=== PATIENT | female | born 1980 | race Caucasian/White ===

== ENCOUNTER 2017-05-23 17:11 | Emergency (ER) | payer OTHER ==
[2017-05-23 17:17] VITALS: BMI 24.8
--- NOTE | 2017-05-23 17:27 | PDOC ---
Rapid Medical Evaluation Chief Complaint: Pain Time Seen by Provider: 05/23/17 17:23 Medical Evaluation: Allergies Allergy/AdvReac Type Severity Reaction Status Date / Time Sulfa (Sulfonamide Allergy Mild Rash Verified 05/23/17 17:12 Antibiotics) [Sulfa(Sulfonamide Antibiotics)] Vital Signs Temp Pulse Resp BP Pulse Ox 97.5 F L 80 18 139/79 100 05/23/17 17:15 05/23/17 17:15 05/23/17 17:15 05/23/17 17:15 05/23/17 17:15 05/23/17 17:23 The patient presents with a chief complaint of: LUQ stomach pain for 8 days. Had mylanta with little relief. Describes the pain as a burn that radiates up to her chest I have performed a brief in-person evaluation of this patient; Pertinent physical exam findings: TTP LUQ I have ordered the following: CBC, CMP, Lipase, EKG The patient will proceed to the ED for further evaluation. Discharge Disposition - Discharge Dispostion Last Admission D/C Date: 03/09/11 - Referrals Referrals: Heidy Butler [Primary Care Provider] - - Patient Instructions - Post Discharge Activity
[2017-05-23 17:46] LABS: BASOPHIL 0.6 % (0-2.0); EOSINOPHIL 1.3 % (0-4.5); MCHC 30.3 g/dl (32.0-36.0); MEAN CELL VOLUME 58.2 fl (80-96); MEAN PLT VOLUME 9.4 fl (7.5-11.1); NEUTROPHILS 58.6 % (42.8-82.8); PLATELET COUNT 210 K/MM3 (134-434); RDW 19.1 % (11.6-15.6); WHITE BLOOD COUNT 5.5 K/mm3 (4.0-10.0)
[2017-05-23 17:50] LABS: MCH 17.7 pg (25.7-33.7)
[2017-05-23 18:12] LABS: ANISOCYTOSIS 3+; HYPOCHROMIA 0; MACROCYTOSIS 0; MICROCYTOSIS 3+; PLATELET ESTIMATE NORMAL; POIKILOCYTOSIS 1+; POLYCHROMASIA 0
[2017-05-23 18:25] LABS: ALBUMIN 4.1 g/dl (3.4-5.0); ANION GAP 5 (8-16); BILIRUBIN,TOTAL 0.4 mg/dL (0.2-1.0); CALCIUM 8.6 mg/dL (8.5-10.1); CO2 27 mmol/L (21-32); CREATININE 0.7 mg/dL (0.55-1.02); GLUCOSE,RANDOM 74 mg/dL (74-106); SGOT/AST 12 U/L (15-37); SGPT/ALT 22 U/L (12-78); TOT PROT 7.7 g/dl (6.4-8.2)
[2017-05-23 18:26] LABS: ALK PHOS 78 U/L (45-117)
--- NOTE | 2017-05-23 20:21 | PDOC ---
History of Present Illness - General History Source: Patient Exam Limitations: No Limitations - History of Present Illness Initial Comments: 05/23/17 21:01 The patient is a 37-year-old female with a significant past medical history of ovarian cysts, and presents to the emergency department with worsening throat pain and abdominal pain for one week. She states she feels like there is something stuck in her throat, accompanied by a burning sensation that radiates up and down the throat to the abdominal region, worse after waking up. She also complains of LUQ abdominal pain that radiates across to the epigastric region. She feels like she wants to pass gas. She reports she has been unable to use the bathroom for two days although she normally goes daily. She reports taking one Advil today, Mylanta, britton seltzer, and mike cedric with no significant relief of pain. She notes she drank a lot of coffee before the pain started, but has stopped drinking coffee since. The patient denies chest pain, shortness of breath, headache and dizziness. The patient denies fever, chills, nausea, vomit, and diarrhea. The patient denies dysuria, frequency, urgency and hematuria. Allergies: sulfa Past Surgical History: None reported Social History: former smoker PCP: Dr. Heidy Butler <Heather Tee - Last Filed: 05/24/17 01:11> <Cristina Blakely - Last Filed: 05/24/17 04:04> - General Chief Complaint: Pain Stated Complaint: PAIN Time Seen by Provider: 05/23/17 17:23 Past History <Heather Tee - Last Filed: 05/24/17 01:11> - Past Medical History Anemia: Yes COPD: No Thyroid Disease: Yes (HYPO) - Suicide/Smoking/Psychosocial Hx Smoking Status: Yes Smoking History: Never smoked Have you smoked in the past 12 months: No Number of Cigarettes Smoked Daily: 4 If you are a former smoker, when did you quit?: 10/2012 Information on smoking cessation initiated: No Hx Alcohol Use: No Drug/Substance Use Hx: No Substance Use Type: None <Cristina Blakely - Last Filed: 05/24/17 04:04> - Past Medical History Allergies/Adverse Reactions: Allergies Allergy/AdvReac Type Severity Reaction Status Date / Time Sulfa (Sulfonamide Allergy Mild Rash Verified 05/23/17 17:12 Antibiotics) [Sulfa(Sulfonamide Antibiotics)] Home Medications: Ambulatory Orders Pantoprazole Sodium [Protonix -] 40 mg PO DAILY #14 tablet.ec 05/24/17 Sucralfate 4 gm PO ASDIR #4 g 05/24/17 Review of Systems - Review of Systems Able to Perform ROS?: Yes Comments:: 05/23/17 21:01 GENERAL/CONSTITUTIONAL: No fever or chills. No weakness. HEAD, EYES, EARS, NOSE AND THROAT: No change in vision. No ear pain or discharge. (+) Throat pain. CARDIOVASCULAR: No chest pain or shortness of breath. RESPIRATORY: No cough, wheezing, or hemoptysis. GASTROINTESTINAL: (+) LUQ abdominal pain. No nausea, vomiting, diarrhea. GENITOURINARY: No dysuria, frequency, or change in urination. MUSCULOSKELETAL: No joint or muscle swelling or pain. No neck or back pain. SKIN: No rash NEUROLOGIC: No headache, vertigo, loss of consciousness, or change in strength/ sensation. ENDOCRINE: No increased thirst. No abnormal weight change. HEMATOLOGIC/LYMPHATIC: No anemia, easy bleeding, or history of blood clots. ALLERGIC/IMMUNOLOGIC: No hives or skin allergy. <Tee,Heather - Last Filed: 05/24/17 01:11> *Physical Exam - Vital Signs Last Vital Signs Temp Pulse Resp BP Pulse Ox 97.5 F L 80 18 139/79 100 05/23/17 17:15 05/23/17 17:15 05/23/17 17:15 05/23/17 17:15 05/23/17 17:15 - Physical Exam Comments: 05/23/17 21:01 GENERAL: Awake, alert, and fully oriented, in no acute distress HEAD: No signs of trauma EYES: PERRLA, EOMI, sclera anicteric, conjunctiva clear ENT: Auricles normal inspection, hearing grossly normal, nares patent, (+) erythema in posterior oropharynx. Moist mucosa NECK: Normal ROM, supple, no lymphadenopathy, JVD, or masses LUNGS: Breath sounds equal, clear to auscultation bilaterally. No wheezes, and no crackles HEART: Regular rate and rhythm, normal S1 and S2, no murmurs, rubs or gallops ABDOMEN: Soft, nontender, normoactive bowel sounds. No guarding, no rebound. No masses EXTREMITIES: Normal range of motion, no edema. No clubbing or cyanosis. No cords, erythema, or tenderness NEUROLOGICAL: Cranial nerves II through XII grossly intact. Normal speech, normal gait SKIN: Warm, Dry, normal turgor, no rashes or lesions noted. <Tee,Heather - Last Filed: 05/24/17 01:11> - Vital Signs Last Vital Signs Temp Pulse Resp BP Pulse Ox 97.5 F L 80 18 139/79 100 05/23/17 17:15 05/23/17 17:15 05/23/17 17:15 05/23/17 17:15 05/23/17 17:15 <Cristina Blakely - Last Filed: 05/24/17 04:04> ED Treatment Course - LABORATORY CBC & Chemistry Diagram: 05/23/17 17:30 05/23/17 17:30 - ADDITIONAL ORDERS Additional order review: Laboratory Results 05/23/17 05/23/17 17:30 17:30 Sodium 140 Potassium 4.0 Chloride 108 H Carbon Dioxide 27 Anion Gap 5 L BUN 14 Creatinine 0.7 D Creat Clearance w eGFR > 60 Random Glucose 74 Calcium 8.6 Total Bilirubin 0.4 AST 12 L ALT 22 D Alkaline Phosphatase 78 Total Protein 7.7 Albumin 4.1 Lipase 135 05/23/17 17:30 RBC 5.32 H MCV 58.2 L MCHC 30.3 L RDW 19.1 H D MPV 9.4 Neutrophils % 58.6 Lymphocytes % 31.9 Monocytes % 7.6 Eosinophils % 1.3 D Basophils % 0.6 - RADIOLOGY Radiograph Interpretation: 05/24/17 01:11 EXAM: CT NECK with contrast HISTORY: Rule out retropharyngeal abscess COMPARISON: None. FINDINGS: Nasopharynx is normal. The right palatine tonsil is somewhat enlarged and may be mildly edematous. this edema extends mildly along the right hypopharyngeal wall. No tonsillar/peritonsillar or other cervical abscess is identified. Epiglottis larynx and vocal cords are normal. The cervical airway is patent. Parotid and submandibular glands are normal. Multiple thyroid nodules are noted. The largest is on the left at approximately 1 cm. - Medications Given in the ED: ED Medications Discontinued Medications Generic Name Dose Route Start Last Admin Trade Name Freq PRN Reason Stop Dose Admin Pantoprazole Sodium 40 mg 05/23/17 20:31 05/23/17 20:52 Protonix Iv IVPUSH 05/23/17 20:32 40 mg ONCE ONE Administration <Heather Tee - Last Filed: 05/24/17 01:11> - LABORATORY CBC & Chemistry Diagram: 05/23/17 17:30 05/23/17 17:30 - ADDITIONAL ORDERS Additional order review: Laboratory Results 05/23/17 05/23/17 17:30 17:30 Sodium 140 Potassium 4.0 Chloride 108 H Carbon Dioxide 27 Anion Gap 5 L BUN 14 Creatinine 0.7 D Creat Clearance w eGFR > 60 Random Glucose 74 Calcium 8.6 Total Bilirubin 0.4 AST 12 L ALT 22 D Alkaline Phosphatase 78 Total Protein 7.7 Albumin 4.1 Lipase 135 05/23/17 17:30 RBC 5.32 H MCV 58.2 L MCHC 30.3 L RDW 19.1 H D MPV 9.4 Neutrophils % 58.6 Lymphocytes % 31.9 Monocytes % 7.6 Eosinophils % 1.3 D Basophils % 0.6 <Cristina Blakely - Last Filed: 05/24/17 04:04> Medical Decision Making - Medical Decision Making 05/24/17 01:09 Discussed results with patient, recommended outpatient GI followup. No acute findings on CT today. <Cristina Blakely - Last Filed: 05/24/17 04:04> *DC/Admit/Observation/Transfer - Attestations Scribe Attestion: 05/23/17 21:02 Documentation prepared by Heather Tee, acting as biomedical analytical scientist for Cristina Blakely MD, /DO. <Heather Tee - Last Filed: 05/24/17 01:11> - Discharge Dispostion Admit: No <Cristina Blakely - Last Filed: 05/24/17 04:04> Diagnosis at time of Disposition: Throat pain in adult - Discharge Dispostion Disposition: HOME Condition at time of disposition: Stable - Prescriptions Prescriptions: Pantoprazole Sodium [Protonix -] 40 mg PO DAILY #14 tablet.ec Sucralfate 4 gm PO ASDIR #4 g - Referrals Referrals: Dawit Kumar MD [Staff Physician] - - Patient Instructions Printed Discharge Instructions: DI for Gastroesophageal Reflux Disease (GERD) Additional Instructions: Follow up with your primary care in the next 2-3 days. Return to the emergency department if you develop fever or if you have worsening symptoms. Magic mouthwash- Combine the following- 1. Benadryl liquid (12.5 mg/5mL)- 30 mL 2. Sucralfate- prescribed- use the entire amount 3. Mylanta or maalox- 60 mL. Combine all 3 together and shake. Swish and spit or swallow 5 mL three times a day before meals and as needed. - Post Discharge Activity
[2017-05-23] MEDS ORDERED: PANTOPRAZOLE SODIUM 40 MG VIAL IVPUSH ONE (20:31)
[2017-05-23] MEDS ORDERED: SODIUM CHLORIDE 1,000 ML IV STA (20:31)
[2017-05-23] MEDS ORDERED: PANTOPRAZOLE SODIUM 40 MG VIAL ONE (20:37)
[2017-05-23] MEDS ORDERED: PANTOPRAZOLE SODIUM 40 MG/100 ML BAG IVPB ONE (20:39)
[2017-05-24 02:04] VITALS: BP 138/76; PULSE 79; TEMP 97.8
--- NOTE | 2017-05-24 14:36 | EKG ---
Test Reason : Blood Pressure : / mmHG Vent. Rate : 072 BPM Atrial Rate : 072 BPM P-R Int : 160 ms QRS Dur : 076 ms QT Int : 404 ms P-R-T Axes : 059 062 029 degrees QTc Int : 442 ms NORMAL SINUS RHYTHM CANNOT RULE OUT ANTERIOR INFARCT , AGE UNDETERMINED ABNORMAL ECG WHEN COMPARED WITH ECG OF 07-NOV-2010 11:25, NO SIGNIFICANT CHANGE WAS FOUND Confirmed by MANN SANCHEZ, NARCISO ([id number]) on 05/24/2017 2:36:20 PM Referred By: Confirmed By:NARCISO DARNELL MD
== END 2017-05-24 02:04 | disposition home or self-care (01) ==
LOC: JER 17:11
PROC: 3E033GC Introduction of Other Therapeutic Substance into Peripheral Vein, Percutaneous Approach (ICD-10-PCS; principal; 2017-05-23)
PROC: 3E0337Z Introduction of Electrolytic and Water Balance Substance into Peripheral Vein, Percutaneous Approach (ICD-10-PCS; 2017-05-23)
DX: J02.9 Acute pharyngitis, unspecified (principal)
CPT/HCPCS: 36415; 70491-TC; 80053; 83690; 84703; 85025; 93005; 93010; 99283-25

== ENCOUNTER 2021-10-28 11:56 | Emergency (ER) | payer OTHER ==
[2021-10-28 12:12] VITALS: TEMP 98.4; BMI 27.1
[2021-10-28] MEDS ORDERED: METHOCARBAMOL 500 MG TABLET PO ONE (13:22)
[2021-10-28] MEDS ORDERED: KETOROLAC TROMETHAMINE 30 MG/1 ML VIAL IM ONE (13:22)
[2021-10-28] MEDS ORDERED: LIDOCAINE 5% TOPICAL PATCH TP ONE (13:23)
[2021-10-28] MEDS ORDERED: LIDOCAINE 5% TOPICAL PATCH ONE (13:25)
[2021-10-28] MEDS ORDERED: METHOCARBAMOL 500 MG TABLET ONE (13:26)
[2021-10-28] MEDS ORDERED: KETOROLAC TROMETHAMINE 30 MG/1 ML VIAL ONE (13:26)
[2021-10-28 14:18] LABS: EPI CELLS 0 /uL (0-25.1); HYALINE CASTS 0 /uL (0-3.1); URINE APPEARANCE CLOUDY; URINE BACTERIA 162 /uL (0-1359); URINE BILIRUBIN NEGATIVE (NEGATIVE); URINE COLOR RED; URINE GLUCOSE (UA) NEGATIVE (NEGATIVE); URINE KETONE NEGATIVE (NEGATIVE); URINE LEUK ESTERASE TRACE (NEGATIVE); URINE NITRITE NEGATIVE (NEGATIVE); URINE PROTEIN 2+ (NEGATIVE); URINE RBC 12098 /uL (0-23.9); URINE UROBILINOGEN 0.2 mg/dL (0.2-1.0); URINE WBC 4 /uL (0-25.8)
[2021-10-28] MEDS ORDERED: DEXAMETHASONE LIQUID 0.5 MG/5 ML PO ONE (15:53)
[2021-10-28] MEDS ORDERED: traMADol HCL 50 MG TABLET PO ONE (15:54)
[2021-10-28] MEDS ORDERED: traMADol HCL 50 MG TABLET ONE (16:01)
[2021-10-28] MEDS ORDERED: DEXAMETHASONE SOD PHOSPHATE 10 MG/1 ML VIAL ONE (16:01)
[2021-10-28 17:09] VITALS: BP 138/88; PULSE 88
[2021-10-28] MEDS ORDERED: LIDOCAINE PATCH REMOVAL MC ONE (22:00)
== END 2021-10-28 17:08 | disposition home or self-care (01) ==
LOC: JERFT 11:56
PROC: 3E0233Z Introduction of Anti-inflammatory into Muscle, Percutaneous Approach (ICD-10-PCS; principal; 2021-10-28)
DX: M54.31 Sciatica, right side (principal)
CPT/HCPCS: 72131-TC; 81003; 84703; 87077; 87086; 96372; 99285-25

== ENCOUNTER 2022-01-19 18:40 | Emergency (ER) | payer OTHER ==
[2022-01-19 19:05] VITALS: BP 150/93; PULSE 81; RESP 18; TEMP 98.7; BMI 26.5
[2022-01-19] MEDS ORDERED: ONDANSETRON 4 MG/2 ML VIAL IVPUSH ONE (22:01)
[2022-01-19] MEDS ORDERED: FAMOTIDINE 20 MG/50 ML IVPB 20 MG/50 ML MG IVPB ONE ×3 (22:01→22:26)
[2022-01-19] MEDS ORDERED: ONDANSETRON 4 MG/2 ML VIAL ONE ×2 (22:13→22:26)
[2022-01-19] MEDS ORDERED: ACETAMINOPHEN 1000 MG/100 ML BAG IVPB ONE (22:23)
[2022-01-19] MEDS ORDERED: ACETAMINOPHEN INJECTION 100 ML IVPB ONE (22:44)
[2022-01-19 23:20] LABS: BASO % 0.6 % (0-2.0); EOS % 0.8 % (0-4.5); HEMATOCRIT 29.5 % (32.4-45.2); HEMOGLOBIN 9.1 GM/dL (10.7-15.3); LYMPH % 34.8 % (8-40); MCHC 30.9 g/dl (32.0-36.0); MEAN CELL VOLUME 58.8 fl (80-96); MEAN PLT VOLUME 9.3 fl (7.5-11.1); NEUT % 55.8 % (42.8-82.8); PLATELET COUNT 252 10^3/uL (134-434); RBC 5.01 M/mm3 (3.60-5.2); WHITE BLOOD COUNT 6.8 K/mm3 (4.0-10.0)
[2022-01-19 23:22] LABS: MCH 18.2 pg (25.7-33.7)
[2022-01-19 23:49] LABS: ANISOCYTOSIS 3+; MACROCYTOSIS 1+; OVALOCYTE 1+
[2022-01-19 23:51] LABS: BLOOD UREA NITROGEN 20.2 mg/dL (7-18); CALCIUM 9.3 mg/dL (8.5-10.1)
[2022-01-19 23:53] LABS: CREATININE 0.7 mg/dL (0.55-1.3)
[2022-01-19 23:55] LABS: BILIRUBIN,TOTAL 0.6 mg/dL (0.2-1); TOT PROT 7.3 g/dl (6.4-8.2)
== END 2022-01-20 01:21 | disposition home or self-care (01) ==
LOC: JER 18:40
PROC: 3E0333Z Introduction of Anti-inflammatory into Peripheral Vein, Percutaneous Approach (ICD-10-PCS; principal; 2022-01-19)
PROC: 3E033GC Introduction of Other Therapeutic Substance into Peripheral Vein, Percutaneous Approach (ICD-10-PCS; 2022-01-19)
PROC: 3E033GC Introduction of Other Therapeutic Substance into Peripheral Vein, Percutaneous Approach (ICD-10-PCS; 2022-01-19)
DX: R10.31 Right lower quadrant pain (principal)
CPT/HCPCS: 36415; 76705-TC; 80053; 83690; 85025; 96374; 96375; 99284-25

== ENCOUNTER 2022-03-05 05:31 | Day surgery (SDC) | payer OTHER ==
[2022-03-04 13:11] VITALS: BMI 25.9
[2022-03-05 11:25] VITALS: TEMP 98.2
[2022-03-05 12:22] VITALS: BP 124/69; PULSE 61; RESP 15
== END 2022-03-05 12:28 | disposition home or self-care (01) ==
LOC: JASU-ENDO 05:31
PROVIDERS: ATTEND Internal Medicine Gastroenterology
PROC: 0DBB8ZX Excision of Ileum, Via Natural or Artificial Opening Endoscopic, Diagnostic (ICD-10-PCS; 2022-03-05)
PROC: 0DBH8ZX Excision of Cecum, Via Natural or Artificial Opening Endoscopic, Diagnostic (ICD-10-PCS; principal; 2022-03-05 11:00)
DX: Z12.11 Encounter for screening for malignant neoplasm of colon (principal); K56.2 Volvulus; K64.8 Other hemorrhoids; K92.1 Melena; Z83.71 Family history of colonic polyps
CPT/HCPCS: 81025; 88305-TC

== ENCOUNTER 2022-10-20 09:56 | Day surgery (SDC) | payer OTHER ==
[~2022-10-20 09:56] MED LIST: IRON SUCROSE INJECTION 200 MG in SODIUM CHLORIDE 100 ML IVPB ONE
[2022-10-20 17:50] VITALS: PULSE 82; RESP 18; TEMP 98.7
[2022-10-20 17:51] VITALS: BP 120/90
== END 2022-10-20 11:35 | disposition home or self-care (01) ==
LOC: JONCNONCHE 09:56 → J7W 09:57 → JONCNONCHE 11:35
PROVIDERS: ATTEND Internal Medicine Hematology & Oncology
PROC: 3E033GC Introduction of Other Therapeutic Substance into Peripheral Vein, Percutaneous Approach (ICD-10-PCS; principal; 2022-10-20)
DX: D50.9 Iron deficiency anemia, unspecified (principal)
CPT/HCPCS: 96365; J1756

== ENCOUNTER 2022-10-27 10:08 | Day surgery (SDC) | payer OTHER ==
[~2022-10-27 10:08] MED LIST changes: +IRON SUCROSE COMPLEX 200 MG in SODIUM CHLORIDE 100 ML IVPB ONE; -IRON SUCROSE INJECTION 200 MG in SODIUM CHLORIDE 100 ML IVPB ONE
[2022-10-27 15:37] VITALS: BP 132/86; PULSE 90; RESP 18; TEMP 98.5
== END 2022-10-27 11:20 | disposition home or self-care (01) ==
LOC: JONCNONCHE 10:08 → J7W 10:09 → JONCNONCHE 11:20
PROVIDERS: ATTEND Internal Medicine Hematology & Oncology
PROC: 3E033GC Introduction of Other Therapeutic Substance into Peripheral Vein, Percutaneous Approach (ICD-10-PCS; principal; 2022-10-27)
DX: D50.9 Iron deficiency anemia, unspecified (principal)
CPT/HCPCS: 96365

== ENCOUNTER 2022-11-03 12:01 | Day surgery (SDC) | payer OTHER ==
[2022-11-03 17:27] VITALS: BP 125/78; PULSE 73; RESP 18; TEMP 97.4
== END 2022-11-03 13:00 | disposition home or self-care (01) ==
LOC: JONCNONCHE 12:01 → J7W 12:02 → JONCNONCHE 13:00
PROVIDERS: ATTEND Internal Medicine Hematology & Oncology
PROC: 3E033GC Introduction of Other Therapeutic Substance into Peripheral Vein, Percutaneous Approach (ICD-10-PCS; principal; 2022-11-03)
DX: D50.9 Iron deficiency anemia, unspecified (principal)
CPT/HCPCS: 96365

== ENCOUNTER 2022-11-10 09:31 | Day surgery (SDC) | payer OTHER ==
[~2022-11-10 09:31] MED LIST changes: -IRON SUCROSE COMPLEX 200 MG in SODIUM CHLORIDE 100 ML IVPB ONE; +IRON SUCROSE INJECTION 200 MG in SODIUM CHLORIDE 100 ML IVPB ONE
[2022-11-10 12:30] VITALS: BP 141/80; PULSE 74; RESP 18; TEMP 98.1
== END 2022-11-10 11:30 | disposition home or self-care (01) ==
LOC: J7W 09:31 → JONCNONCHE 09:31
PROVIDERS: ATTEND Internal Medicine Hematology & Oncology
PROC: 3E033GC Introduction of Other Therapeutic Substance into Peripheral Vein, Percutaneous Approach (ICD-10-PCS; principal; 2022-11-10)
DX: D50.9 Iron deficiency anemia, unspecified (principal)
CPT/HCPCS: 96365; J1756

== ENCOUNTER 2023-02-22 19:20 | Emergency (ER) | payer OTHER ==
[2023-02-22 19:25] VITALS: BP 136/92; PULSE 72; RESP 18; TEMP 98.2; BMI 24.6
[2023-02-22] MEDS ORDERED: ACETAMINOPHEN 1000 MG/100 ML BAG IVPB ONE (20:40)
[2023-02-22] MEDS ORDERED: FAMOTIDINE 20 MG/50 ML IVPB 20 MG/50 ML MG IVPB ONE ×2 (20:40→20:46)
[2023-02-22] MEDS ORDERED: ONDANSETRON 4 MG/2 ML VIAL IVPUSH ONE (20:40)
[2023-02-22] MEDS ORDERED: LACTATED RINGERS SOLUTION 1000 ML INFUS.BAG IV ONE (20:40)
[2023-02-22] MEDS ORDERED: DICYCLOMINE HCL 10 MG CAPSULE PO ONE (20:41)
[2023-02-22] MEDS ORDERED: MAG HYDROX/AL HYDROX/SIMETH 30 ML UNIT-DOSE CUP PO ONE (20:41)
[2023-02-22] MEDS ORDERED: DICYCLOMINE HCL 10 MG CAPSULE ONE (20:46)
[2023-02-22] MEDS ORDERED: ONDANSETRON 4 MG/2 ML VIAL ONE (20:46)
[2023-02-22] MEDS ORDERED: MAG HYDROX/AL HYDROX/SIMETH 30 ML UNIT-DOSE CUP ONE (20:46)
[2023-02-22] MEDS ORDERED: ACETAMINOPHEN INJECTION 100 ML IVPB ONE (20:47)
[2023-02-22 21:31] LABS: BASO % 0.5 % (0-2.0); EOS % 0.6 % (0-4.5); HEMATOCRIT 38.9 % (32.4-45.2); HEMOGLOBIN 12.9 GM/dL (10.7-15.3); LYMPH % 30.2 % (8-40); MCH 25.6 pg (25.7-33.7); MCHC 33.2 g/dl (32.0-36.0); MEAN CELL VOLUME 77.1 fl (80-96); MEAN PLT VOLUME 8.2 fl (7.5-11.1); NEUT % 60.7 % (42.8-82.8); PLATELET COUNT 252 10^3/uL (134-434); RBC 5.04 M/mm3 (3.60-5.2); RDW 14.6 % (11.6-15.6)
[2023-02-22 21:46] LABS: POTASSIUM 4.3 mmol/L (3.5-5.1)
[2023-02-22 21:49] LABS: ALBUMIN 3.8 g/dl (3.4-5.0); CALCIUM 9.5 mg/dL (8.5-10.1)
[2023-02-22 21:50] LABS: BLOOD UREA NITROGEN 13.9 mg/dL (7-18); MAGNESIUM 2.1 mg/dL (1.8-2.4)
[2023-02-22 21:52] LABS: CREATININE 0.6 mg/dL (0.55-1.3)
[2023-02-22 21:54] LABS: BILIRUBIN,TOTAL 0.6 mg/dL (0.2-1); TOT PROT 7.1 g/dl (6.4-8.2)
== END 2023-02-23 00:48 | disposition home or self-care (01) ==
LOC: JER 19:20
PROC: 3E033GC Introduction of Other Therapeutic Substance into Peripheral Vein, Percutaneous Approach (ICD-10-PCS; principal; 2023-02-22)
PROC: 3E033NZ Introduction of Analgesics, Hypnotics, Sedatives into Peripheral Vein, Percutaneous Approach (ICD-10-PCS; 2023-02-22)
PROC: 3E033GC Introduction of Other Therapeutic Substance into Peripheral Vein, Percutaneous Approach (ICD-10-PCS; 2023-02-22)
DX: R10.11 Right upper quadrant pain (principal); R63.0 Anorexia; R11.0 Nausea; K59.00 Constipation, unspecified; K52.9 Noninfective gastroenteritis and colitis, unspecified
CPT/HCPCS: 36415; 74177-TC; 80053; 83690; 83735; 84703; 85025; 99285-25; Q9967

== ENCOUNTER 2023-09-16 11:40 | Emergency (ER) | payer OTHER ==
[2023-09-16 11:55] VITALS: BP 137/92; PULSE 82; RESP 18; TEMP 98.1; BMI 26.4
[2023-09-16] MEDS ORDERED: LIDOCAINE 4% PATCH TP ONE (13:36)
[2023-09-16] MEDS ORDERED: METHOCARBAMOL 500 MG TABLET ONE (13:36)
[2023-09-16] MEDS ORDERED: DEXAMETHASONE SOD PHOSPHATE 10 MG/1 ML VIAL ONE (13:36)
[2023-09-16] MEDS ORDERED: ACETAMINOPHEN 325 MG TABLET (FP) ONE (13:36)
[2023-09-16] MEDS: DEXAMETHASONE SOD PHOSPHATE 10 MG/1 ML VIAL IM ONE (13:43)
[2023-09-16] MEDS: ACETAMINOPHEN 325 MG TABLET (FP) PO ONE (13:43)
[2023-09-16] MEDS: METHOCARBAMOL 750 MG TABLET PO ONE (13:43)
[2023-09-16] MEDS: LIDOCAINE 4% PATCH TP ONE (13:58)
[2023-09-16] MEDS ORDERED: LIDOCAINE PATCH REMOVAL MC ONE (22:00)
== END 2023-09-16 18:20 | disposition home or self-care (01) ==
LOC: JERFT 11:40
PROC: 3E033GC Introduction of Other Therapeutic Substance into Peripheral Vein, Percutaneous Approach (ICD-10-PCS; principal; 2023-09-16)
DX: M54.16 Radiculopathy, lumbar region (principal); M47.896 Other spondylosis, lumbar region; M51.26 Other intervertebral disc displacement, lumbar region; M54.50 Low back pain, unspecified; G89.29 Other chronic pain
CPT/HCPCS: 72131-TC; 84703; 96374; 99284-25; J1100

== ENCOUNTER 2023-11-19 14:46 | Emergency (ER) | payer OTHER ==
[2023-11-19 15:03] VITALS: BMI 26.9
[2023-11-19] MEDS ORDERED: METOCLOPRAMIDE HCL INJECTION 10 MG/2 ML VIAL ONE (17:00)
[2023-11-19] MEDS ORDERED: LIDOCAINE VISCOUS 2% ORAL/TOP 15 ML UNIT-DOSE CUP ONE (17:00)
[2023-11-19] MEDS ORDERED: MAG HYDROX/AL HYDROX/SIMETH 30 ML UNIT-DOSE CUP ONE (17:01)
[2023-11-19] MEDS ORDERED: FAMOTIDINE 20 MG/50 ML IVPB 20 MG/50 ML MG IVPB ONE (17:01)
[2023-11-19] MEDS: MAG HYDROX/AL HYDROX/SIMETH 30 ML UNIT-DOSE CUP PO ONE (17:10)
[2023-11-19] MEDS: LIDOCAINE VISCOUS 2% ORAL/TOP 15 ML UNIT-DOSE CUP MM ONE (17:25)
[2023-11-19] MEDS: SODIUM CHLORIDE 0.9% 500 ML INFUS.BAG IV ONE (17:25)
[2023-11-19] MEDS: FAMOTIDINE 20 MG/50 ML IVPB 20 MG/50 ML MG IVPB ONE (17:25)
[2023-11-19] MEDS: METOCLOPRAMIDE HCL INJECTION 10 MG/2 ML VIAL IVPUSH ONE (17:25)
[2023-11-19 17:29] LABS: BASO % 0.4 % (0-2.0); EOS % 0.6 % (0-4.5); HEMATOCRIT 34.7 % (32.4-45.2); HEMOGLOBIN 10.9 GM/dL (10.7-15.3); LYMPH % 28.9 % (8-40); MCH 21.2 pg (25.7-33.7); MCHC 31.4 g/dl (32.0-36.0); MEAN CELL VOLUME 67.6 fl (80-96); MEAN PLT VOLUME 8.4 fl (7.5-11.1); NEUT % 62.1 % (42.8-82.8); PLATELET COUNT 230 10^3/uL (134-434); RBC 5.13 M/mm3 (3.60-5.2); RDW 17.4 % (11.6-15.6); WHITE BLOOD COUNT 6.4 K/mm3 (4.0-10.0)
[2023-11-19 17:55] LABS: POTASSIUM 4.4 mmol/L (3.5-5.1)
[2023-11-19 17:57] LABS: ALBUMIN 3.9 g/dl (3.4-5.0)
[2023-11-19 17:58] LABS: BLOOD UREA NITROGEN 14.5 mg/dL (7-18)
[2023-11-19 18:00] LABS: CREATININE 0.6 mg/dL (0.55-1.3)
[2023-11-19 18:02] LABS: BILIRUBIN,TOTAL 0.6 mg/dL (0.2-1); TOT PROT 7.2 g/dl (6.4-8.2)
[2023-11-19 18:23] LABS: ANISOCYTOSIS 2+; MACROCYTOSIS 0; OVALOCYTE 1+; TARGET CELLS 0
[2023-11-19 21:16] VITALS: BP 137/72; PULSE 88; RESP 16; TEMP 98.5
== END 2023-11-19 21:32 | disposition home or self-care (01) ==
LOC: JER 14:46
PROC: 3E033GC Introduction of Other Therapeutic Substance into Peripheral Vein, Percutaneous Approach (ICD-10-PCS; principal; 2023-11-19)
PROC: 3E033GC Introduction of Other Therapeutic Substance into Peripheral Vein, Percutaneous Approach (ICD-10-PCS; 2023-11-19)
DX: R79.9 Abnormal finding of blood chemistry, unspecified (principal); Z80.0 Family history of malignant neoplasm of digestive organs; R10.11 Right upper quadrant pain; R10.13 Epigastric pain; R63.0 Anorexia; R11.0 Nausea
CPT/HCPCS: 36415; 74177-TC; 76705-TC; 80053; 83690; 84484; 84703; 85025; 93005; 93010; 96365; 96375; 99285-25; Q9967

== ENCOUNTER 2024-01-12 06:15 | Emergency (ER) | payer OTHER ==
[2024-01-12 06:27] VITALS: TEMP 99; BMI 26.9
[2024-01-12] MEDS ORDERED: MORPHINE SULFATE 2 MG/ML SYRINGE ONE (07:29)
[2024-01-12 07:39] LABS: HEMATOCRIT 32.4 % (32.4-45.2); HEMOGLOBIN 10.2 GM/dL (10.7-15.3); MCH 21.1 pg (25.7-33.7); MCHC 31.7 g/dl (32.0-36.0); MEAN CELL VOLUME 66.5 fl (80-96); MEAN PLT VOLUME 8.4 fl (7.5-11.1); PLATELET COUNT 249 10^3/uL (134-434); RBC 4.87 M/mm3 (3.60-5.2); RDW 16.3 % (11.6-15.6); WHITE BLOOD COUNT 8.4 K/mm3 (4.0-10.0)
[2024-01-12] MEDS: morphine CARPU-JECT 4 MG/1 ML DISP.SYRIN IVPUSH ONE (07:43)
[2024-01-12] MEDS ORDERED: ACETAMINOPHEN INJECTION 100 ML IVPB ONE (07:44)
[2024-01-12] MEDS: SODIUM CHLORIDE 0.9% 1000 ML INFUS.BAG IV ONE (07:45)
[2024-01-12] MEDS: ACETAMINOPHEN 1000 MG/100 ML BAG IVPB ONE (07:46)
[2024-01-12 08:00] LABS: CALCIUM 9.3 mg/dL (8.5-10.1)
[2024-01-12 08:01] LABS: BLOOD UREA NITROGEN 9.6 mg/dL (7-18)
[2024-01-12 08:04] LABS: CREATININE 0.7 mg/dL (0.55-1.3)
[2024-01-12 08:05] LABS: BILIRUBIN,TOTAL 0.8 mg/dL (0.2-1)
[2024-01-12 08:06] LABS: TOT PROT 7.3 g/dl (6.4-8.2)
[2024-01-12 10:31] VITALS: BP 138/78; PULSE 73; RESP 20
[2024-01-12] MEDS ORDERED: LIDOCAINE 2.5%/PRILOCAINE 2.5% (5 Gram/TUBE) TP ONE (10:32)
[2024-01-12] MEDS: LIDOCAINE 2.5%/PRILOCAINE 2.5% (5 Gram/TUBE) TP ONE (10:33)
[2024-01-12] MEDS ORDERED: LIDOCAINE HCL 2% JELLY 11 ML TP ONE (10:42)
[2024-01-12] MEDS ORDERED: KETOROLAC TROMETHAMINE 60 MG/2 ML VIAL ONE (10:47)
[2024-01-12] MEDS: KETOROLAC TROMETHAMINE 15 MG/ML VIAL IVPUSH ONE ×2 (10:54)
== END 2024-01-12 11:01 | disposition home or self-care (01) ==
LOC: JER 06:15
PROC: 3E033NZ Introduction of Analgesics, Hypnotics, Sedatives into Peripheral Vein, Percutaneous Approach (ICD-10-PCS; principal; 2024-01-12)
PROC: 3E0333Z Introduction of Anti-inflammatory into Peripheral Vein, Percutaneous Approach (ICD-10-PCS; 2024-01-12)
PROC: 3E033NZ Introduction of Analgesics, Hypnotics, Sedatives into Peripheral Vein, Percutaneous Approach (ICD-10-PCS; 2024-01-12)
DX: K62.89 Other specified diseases of anus and rectum (principal)
CPT/HCPCS: 36415; 74177-TC; 80053; 84703; 85027; 96374; 96375; 99284-25; J0131; Q9967